=== PATIENT | male | born 1965 | race Caucasian/White ===

== ENCOUNTER 2024-01-09 13:43 | Outpatient (CLI) | payer BC | END 2024-01-09 13:44 | disposition home or self-care (01) | LOC: BICRAD 13:43 | PROVIDERS: ATTEND Podiatrist | DX: M19.071 Primary osteoarthritis, right ankle and foot (principal); M72.2 Plantar fascial fibromatosis; Q79.60 Ehlers-Danlos syndrome, unspecified ==